=== PATIENT | male | born 1960 | race Caucasian/White ===

== ENCOUNTER 2017-04-09 17:54 | Emergency (ER) | payer SELFPAY ==
[~2017-04-09] VITALS: Ht 175.3 cm; Wt 65.8 kg
--- NOTE | 2017-04-09 18:20 | Emergency Room Report ---
History of Present Illness General Chief Complaint: Altered Level of Consciousness Source: Patient Present Illness HPI Patient is a 54-year-old male brought in from a parked after increased altered level consciousness. Patient reports having fallen one day prior to arrival. He states that his name is Matthias Cueva. He denies any vomiting. He had been drinking alcohol recently. Allergies: Coded Allergies: No Known Allergies (Unverified , 04/09/17) UNABLE TO ASSESS (Unverified , 06/13/15) Patient History Past Medical History: see triage record Reviewed Nursing Documentation: PMH: Agreed, PSxH: Agreed Nursing Documentation-PMH Past Medical History: No Stated History Review of Systems All Other Systems: negative except mentioned in HPI Physical Exam Vital Signs Date Time Temp Pulse Resp B/P (MAP) Pulse Ox O2 Delivery O2 Flow Rate FiO2 04/09/17 17:55 97.3 90 16 90/62 98 Room Air Sp02 EP Interpretation: reviewed, normal General Appearance: normal inspection, well appearing, no apparent distress, alert, Chronically Ill Head: atraumatic ENT: normal ENT inspection, hearing grossly normal, normal voice Neck: normal inspection, full range of motion, supple, no bony tend Respiratory: normal inspection, lungs clear, normal breath sounds, no respiratory distress, no retraction, no wheezing Cardiovascular #1: regular rate, rhythm, no edema Gastrointestinal: normal inspection, normal bowel sounds, non tender, soft, no guarding, no hernia Genitourinary: no CVA tenderness Musculoskeletal: normal inspection, back normal, normal range of motion Neurologic: normal inspection, alert, responsive, 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, speech normal Psychiatric: normal inspection, judgement/insight normal, mood/affect normal Skin: normal inspection, normal color, no rash Medical Decision Making Diagnostic Impression: Primary Impression: Alcohol abuse Additional Impressions: Subdural hematoma Skull fracture ER Course Patient is presented for fall Differential diagnosis included but was not limited to ischemic stroke, subarachnoid hemorrhage, hypoglycemia, spinal cord injury, neurodegenerative disorder, urinary tract infection, hypoxemia.CT the head read by radiology showed nondisplaced skull fracture as well as acute on chronic subdural hematoma. CT the cervical spine showed no fracture with mulitple lucencies c/w possible metastatic disease. The patient was given IV Keppra. Patient was discussed with Dr. Duncan for trauma surgery at [facility] for higher level of care transfer. Labs Test 04/09/17 18:40 04/09/17 19:20 White Blood Count 7.5 K/UL (4.8-10.8) Red Blood Count 3.96 M/UL (4.70-6.10) Hemoglobin 12.4 G/DL (14.2-18.0) Hematocrit 37.8 % (42.0-52.0) Mean Corpuscular Volume 95 FL (80-99) Mean Corpuscular Hemoglobin 31.2 PG (27.0-31.0) Mean Corpuscular Hemoglobin Concent 32.8 G/DL (32.0-36.0) Red Cell Distribution Width 12.3 % (11.6-14.8) Platelet Count 119 K/UL (150-450) Mean Platelet Volume 8.7 FL (6.5-10.1) Neutrophils (%) (Auto) 59.1 % (45.0-75.0) Lymphocytes (%) (Auto) 31.0 % (20.0-45.0) Monocytes (%) (Auto) 7.4 % (1.0-10.0) Eosinophils (%) (Auto) 2.1 % (0.0-3.0) Basophils (%) (Auto) 0.3 % (0.0-2.0) Sodium Level 147 MMOL/L (136-145) Potassium Level 3.0 MMOL/L (3.5-5.1) Chloride Level 107 MMOL/L (98-107) Carbon Dioxide Level 28 MMOL/L (21-32) Anion Gap 12 mmol/L (5-15) Blood Urea Nitrogen 5 mg/dL (7-18) Creatinine 0.7 MG/DL (0.55-1.30) Estimat Glomerular Filtration Rate > 60 mL/min (>60) Glucose Level 66 MG/DL (74-106) Calcium Level 8.2 MG/DL (8.5-10.1) Total Bilirubin 0.6 MG/DL (0.2-1.0) Aspartate Amino Transf (AST/SGOT) 86 U/L (15-37) Alanine Aminotransferase (ALT/SGPT) 59 U/L (12-78) Alkaline Phosphatase 72 U/L (46-116) Total Protein 6.4 G/DL (6.4-8.2) Albumin 3.2 G/DL (3.4-5.0) Globulin 3.2 g/dL Albumin/Globulin Ratio 1.0 (1.0-2.7) Serum Alcohol 367 mg/dL Last Vital Signs Date Time Temp Pulse Resp B/P (MAP) Pulse Ox O2 Delivery O2 Flow Rate FiO2 04/09/17 17:55 97.3 90 16 90/62 98 Room Air Status: unchanged Disposition: XFER SHT-TRM HOSP Condition: Serious Paulino Chand Apr 09, 2017 18:20
[2017-04-09 18:49] VITALS: BP 90/62
[2017-04-09 18:52] LABS: BASOPHILS % (AUTO) 0.3 % (0.0-2.0); EOSINOPHILS % (AUTO) 2.1 % (0.0-3.0); HEMATOCRIT 37.8 % (42.0-52.0); HEMOGLOBIN 12.4 G/DL (14.2-18.0); MEAN CORPUSCULAR VOLUME 95 FL (80-99); MONOCYTES % (AUTO) 7.4 % (1.0-10.0); NEUTROPHILS % (AUTO) 59.1 % (45.0-75.0); PLATELET COUNT 119 K/UL (150-450); RED BLOOD COUNT 3.96 M/UL (4.70-6.10); RED CELL DISTRIBUTION WIDTH 12.3 % (11.6-14.8); WHITE BLOOD COUNT 7.5 K/UL (4.8-10.8)
[2017-04-09 19:08] LABS: ANION GAP 12 mmol/L (5-15); BLOOD UREA NITROGEN 5 mg/dL (7-18); CALCIUM 8.2 MG/DL (8.5-10.1); CARBON DIOXIDE 28 MMOL/L (21-32); CHLORIDE 107 MMOL/L (98-107); CREATININE 0.7 MG/DL (0.55-1.30); SODIUM 147 MMOL/L (136-145)
[2017-04-09 19:13] LABS: ALANINE AMINOTRANSFERASE 59 U/L (12-78); ALBUMIN 3.2 G/DL (3.4-5.0); ALKALINE PHOSPHATASE 72 U/L (46-116); ASPARTATE AMINO TRANSFERASE 86 U/L (15-37); BILIRUBIN,TOTAL 0.6 MG/DL (0.2-1.0)
[2017-04-09 19:43] VITALS: BP 111/72
[2017-04-09] MEDS ORDERED: levETIRAcetam 1,000mg/NS100ml 100 ML IVPB ONE (19:45)
[2017-04-09 20:09] LABS: INR 0.9 (0.9-1.1)
[2017-04-09 20:47] VITALS: BP 116/57
[2017-04-09 21:32] VITALS: BP 113/73
[2017-04-09 23:30] VITALS: BP 109/61
--- NOTE | 2017-04-10 10:38 | Diagnostic Imaging Report ---
Indication: Altered mental status, trauma Technique: Continuous helical CT scanning of the head was performed utilizing automated exposure control without intravenous contrast material. Axial and coronal reconstructions were obtained. Comparison: None CT dose: Total DLP 1446.46 mGycm; CTDI vol 70.38 mGy Findings: There is a small area of extra-axial increased density in the right frontal region which is most concerning for an area of small subdural hemorrhage given history of trauma. There is approximately 3 mm of [id number] midline shift. No intraparenchymal hemorrhage is identified. No focal low-attenuation lesion is seen in the brain. Ventricles and sulci within normal limits for age. No cisternal effacement at this time. Probable mild small vessel ischemic changes in the periventricular white matter. Soft tissue swelling in the left frontoparietal region. There is a suspected nondisplaced fracture of the left parietal bone. There is opacification of some right mastoid air cells. There is a high riding jugular bulb versus dehiscence on the right. IMPRESSION: Small focus of true axial high attenuation in the right frontal region most concerning for small acute to subacute subdural hemorrhage, especially given history of trauma. 3 mm right to left midline shift. No cisternal effacement. Probable nondisplaced left parietal bone fracture with overlying soft tissue swelling. Additional findings as above. This corresponds with the statrad preliminary report. The CT scanner at [facility] is accredited by the [employer] and the scans are performed using protocols designed to limit radiation exposure to as low as reasonably achievable to attain images of sufficient resolution adequate for diagnostic evaluation.
--- NOTE | 2017-04-10 10:55 | Diagnostic Imaging Report ---
Indication: Trauma Technique: CT cervical spine was performed utilizing automated exposure control without intravenous contrast material. Axial, sagittal and coronal images were generated. CT dose: Total DLP 325.42 mGycm; CTDI vol 14.94 mGy Comparison: None Findings: No evidence of acute fracture or traumatic malalignment. There is multilevel degenerative change of the cervical spine with mutlilevel disc osteophyte complexes as well as facet and uncovertebral joint hypertrophy. These findings are most pronounced at C6-C7. No bony central canal stenosis. There are multiple well-circumscribed lucencies in the cervical vertebra which may be related to degenerative change however additional etiologies including metastatic disease not entirely excluded. No prevertebral soft tissue abnormality or collection identified. There is interstitial thickening at the lung apices. IMPRESSION: No evidence of acute fracture or traumatic malalignment. Multiple level degenerative change of the cervical spine. Multiple small nonspecific bony lucencies are noted, possibly related to degenerative change. Metastatic disease not entirely excluded. Further evaluation with MRI without and with contrast recommended. Areas of interstitial thickening partially visualized at the lung apices. This corresponds with the statrad preliminary report. The CT scanner at [facility] is accredited by the [employer] and the scans are performed using protocols designed to limit radiation exposure to as low as reasonably achievable to attain images of sufficient resolution adequate for diagnostic evaluation.
== END 2017-04-09 23:30 | disposition short-term general hospital (02) ==
LOC: EDBD 17:54 → EMR 19:35
DX: F10.10 Alcohol abuse, uncomplicated (principal); S02.0XXA Fracture of vault of skull, initial encounter for closed fracture; W19.XXXA Unspecified fall, initial encounter; Y92.9 Unspecified place or not applicable
CPT/HCPCS: 36415; 70450; 72125; 80053; 85025; 85610; 85730; 96374; 99285; G0480; J1953; 80329; J8499